=== PATIENT | male | born 1935 | race Caucasian/White ===

== ENCOUNTER 2018-07-06 10:58 | Inpatient (IN) | payer OTHER ==
[~2018-07-06] VITALS: Ht 170.2 cm; Wt 76.7 kg
--- NOTE | ~2018-07-06 | HC ---
[facility] [place] [address] CONSULTATION Name: JUAN R EMERSON Room #: [facility] ADM IN M.R.#: [id number] Admission: 07/06/18 Attend Phys: Frank Rao MD Discharge: Date of : 36 Report #: [id number] THIS REPORT FOR: //name// CC: Polly Rao DATE OF SERVICE: 07/07/2018 HISTORY OF PRESENT ILLNESS: This is an 82-year-old male patient who was evaluated by me for altered mental status. This patient lives with the daughter. He was able to do many of the things by himself. He went to a bank and looks like he got confused. He does not remember much about that. He was at baseline mentation prior to dropping there. So, it looks like it happened episodically. He was not having any significant infection at that time. His blood sugar has been low here. That is being adjusted by Dr. Rao. REVIEW OF SYSTEMS: Indicates that this patient's blood sugar is running low. He had an MRI done, which was reviewed that does show multiple small CVA. Those are chronic and none of them is acute. He does have a cardiac stent as well as history of bypass surgery. He does have a history of coronary artery disease as well as diabetes mellitus. He does not look like he has any clinical CVA. I carried out the 14-point review of system and this was his relevant 14-point review of system. He does not have any ambulation difficulty and in fact is able to help his family do multiple things. PAST MEDICAL HISTORY: Positive for diabetes and looks like he has a documented hypoglycemia here. FAMILY HISTORY: Negative for early age stroke. SOCIAL HISTORY: Multiple family members were here and I talked to them about his condition. Apparently, he does not smoke or drink any alcohol. PHYSICAL EXAMINATION: Indicates he is alert. He is responsive. He can tell me what month and what date it is. He knows what hospital he is in. He was able to name the president, but was not able to name the president before that. So his memory is affected, but not markedly so at the moment, but he becomes much more confused than this during that episode. His cranial nerve examinations appear unremarkable. His strength, sensation, reflexes and tone is symmetrical. There is no meningeal sign. There is no carotid bruit. His position sense is intact. His pulses are present. His cardiac examinations appear unremarkable. No respiratory difficulty was noticed. Blood pressure is 159/66, respiration is 20, pulse is 70, temperature is 97.4. LABORATORY DATA: Indicates that he does have slightly increased WBC count of 12.7. His blood sugar has been persistently low and it has been 46 and 51. His [facility] [address] [place] [address] CONSULTATION Name: JUAN R EMERSON Room #: 461-P ADM IN M.R.#: [id number] Admission: 07/06/18 Attend Phys: Frank Rao MD Discharge: Date of : 36 Report #: [id number] TSH and vitamin B12 is normal. His MRI was reviewed. It demonstrates multiple strokes in various locations. His carotid Doppler looks unremarkable. It does show some atherosclerotic disease, but nothing which is causing any hemodynamic disturbances. IMPRESSION: This patient does have some cognitive deficit in the baseline. They do become intermittently worst. One of the etiology for that will be hypoglycemia. This hypoglycemia he has is significant and can cause the symptoms like that and it may have even gone lower than that when his symptoms occur. The patient with cognitive deficits sometimes can have nonconvulsive seizures and sometimes, they can have transient ischemic attack. He does have lacunar cerebrovascular accidents on both sides and that possibility is there. His MRI demonstrates that. His carotid is unremarkable. I will get an MRA done to exclude any possibility of intracranial stenosis or any vasculitis. He will need a lipid profile, but again that can be done as an outpatient. He also needs a sed rate. He is already on aspirin and because of his stroke, the secondary prophylaxis needs to be considered in this patient. RECOMMENDATIONS: 1. We will suggest lipid profile and sed rate. If he goes home, it can be done as an outpatient. This is a chronic process. He insists on going home. 2. I will get an MRA done. 3. I will try to get an EEG done. 4. He should have formal neuropsychological testing done because the family has question whether he can drive, whether he can take care of his finances and those questions will be answered by formal neuropsychological testing. 5. If these tests cannot be arranged and the patient really wants to go home, he can go home because the daughter will provide 24-hour care to him. I had multiple conversations with the patient's family and more than 50 minutes of time was spent taking care of this patient and majority of that time was spent counseling the patient as well as coordinating his care. <ELECTRONICALLY SIGNED> By: Sam Masterson MD 07/07/18 1711 [id number] Sam Masterson MD /nt
--- NOTE | ~2018-07-06 | HC ---
[facility] [place] [address] CONSULTATION Name: JUAN R EMERSON Room #: [address] [place] [address] IN M.R.#: [id number] Admission: 07/06/18 Attend Phys: Frank Rao MD Discharge: 07/07/18 Date of : 36 Report #: [id number] THIS REPORT FOR: //name// CC: Polly Rao DATE OF SERVICE: 07/07/2018 AGE: 82. REFERRING PHYSICIAN: Sam Masterson MD. CLINICAL PRESENTATION: The patient is an 82-year-old male admitted to the [facility] for evaluation and treatment following an episode of confusion and disorientation. His daughter indicated that he appeared weak and confused when picking her up from a doctor's appointment, and she brought him to the hospital for assessment and treatment. The patient lacks a complete recall of events prior to his hospitalization as he describes a feeling of disorientation while at a bank and returning to his car with the next memory being in the hospital. Medical records indicate that he had been feeling dizziness in the fire officer the day of the acute confusional state. His daughter indicates that he has had similar episodes, possibly related to blood pressure medication for the past 3 years. Additionally, his daughter reports intermittent periods in which he becomes aggressive and combative to the extent of striking her. Periods of disorientation are described in which he has not recognized former acquaintances and friends. His assessment and plan upon admission included acute encephalopathy at baseline, possibly Alzheimer's versus vascular dementia. Orders included an MRI of his head, ultrasound of the carotids, echocardiogram, Neurology and geriatric consult. Neuropsychological consultation was requested to provide assistance in the assessment of cognitive and emotional status and to provide recommendations and services. Prior to this most recent admission, the patient reports living independently with his daughter and two grandchildren. He has five children. He stated that his second approximately 4 weeks prior to his recent hospital admission. However, his daughter indicated that she has been for over four years. He has completed the 10th grade. 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 There is no prior history of [facility] [address] [place] [address] CONSULTATION Name: JUAN R EMERSON Room #: 461-P DIS IN M.R.#: [id number] Admission: 07/06/18 Attend Phys: Frank Rao MD Discharge: 07/07/18 Date of : 36 Report #: [id number] anxiety/depression or alcohol/drug abuse that is reported. TECHNIQUES UTILIZED: Clinical interview, review of medical records, staff consultation and behavioral observation, mini mental status exam 2 standard version, clock drawing, category fluency assessment and family interview-daughter. EXAMINATION FINDINGS: The patient was alert and cooperative with the assessment. He does not report auditory or visual hallucinations. There is no evidence of aphasia. He is partially accurate in the events immediately preceding his hospitalization. He does not report difficulty with sleep or appetite. Variability in memory and intermittent periods of agitation are reported. His mood appears somewhat depressed. He does not report subjective anxiety, although he would like to return home as soon as possible. While he refers to the loss of his as more recent, he maintains a relationshiop with a female peer. He has a temporal disorientation to time in the manner in which he describes current social interaction. His performance on the MMSE 2 brief version was in the mild to moderate range of impairment with a raw score of 12/16, which is a T score of 35 and percentile rank of 7. He was 3/3 for initial registration, 5/5 for orientation to time, 3/[address] and 1/3 for immediate recall of 3 items after a brief time delay and distraction. Performance on the MMSE 2 standard version was in the borderline range with a raw score 21 of 30, T score 36 and percentile rank of 8. He was 1/5 for serial sevens, 2/2 for naming, 1/1 for repetition, 3/3 for comprehension, 1/1 for being able to read and follow single command and write a sentence. The patient was unable to accurately copy a simple geometric design and unable to accurately set the hands of a clock at a designated time, suggesting deficits in visual construction and executive functioning. Category fluency was within normal range for his age with a T score of 45. The patient is presenting with deficits in memory, sustained concentration and attention, visual spatial construction and executive functioning. He is alert and oriented. This type of presentation suggests a major neurocognitive disorder (dementia). DIAGNOSTIC IMPRESSION: Major neurocognitive disorder (dementia), unspecified, without behavior disorder - mild severity. RECOMMENDATIONS: The patient may have had an initial delirium that is now resolved. Lingering symptoms of cognitive disorder are noted. A more thorough neuropsychological assessment upon discharge is indicated to assist in clarification of neurocognitive deficits. [facility] [address] [place] [address] CONSULTATION Name: ZAHIDA EMERSONED Room #: 461-P DIS IN M.R.#: [id number] Admission: 07/06/18 Attend Phys: Frank Rao MD Discharge: 07/07/18 Date of : 36 Report #: [id number] Driving should be discontinued at this time in order to maintain safety and pending a more thorough evaluation. The patient will require assistance in the management of medication, nutrition and finances to ensure safety. His presentation does have Alzheimer and vascular type features. Thank you very much for allowing me to provide the consultation on this patient. <ELECTRONICALLY SIGNED> By: Raleigh Rodriguez, PhD 07/10/18 0623 1339 1717 Raleigh Rodriguez, PhD /nt
--- NOTE | ~2018-07-06 | 2DMMODE ---
[facility] [address] [place] [address] 2 D/M-MODE ECHOCARDIOGRAM Name: JUAN R EMERSON Room #: 461-P [facility] IN M.R.#: [id number] Admission: 07/06/18 Attend Phys: Frank Rao, Discharge: Date of : 36 Date of Service: 07/07/18 1127 Report #: [id number] THIS REPORT FOR: //name// APPROVED REPORT Study performed: 07/07/2018 10:04:23 EXAM: Comprehensive 2D, Doppler, and color-flow Echocardiogram Patient Location: Bedside Room #: 461 Status: routine BSA: 1.88 HR: 73 bpm BP: 133/47 mmHg Other Information Study Quality: Adequate Indications Diabetes Dizziness and Vertigo CAD Hypertension/HDD 2D Dimensions RVDd: 38.40 mm IVSd: 11.97 (7-11mm) LVOT Diam: 20.62 (18-24mm) LVDd: 48.39 mm PWd: 13.15 (7-11mm) Ascending Ao: 35.72 (22-36mm) LVDs: 29.99 (25-40mm) Aortic Root: 38.15 mm Volumes Left Atrial Volume (Systole) Single Plane 4CH: 94.45 mL Single Plane 2CH: 82.28 mL LA ESV Index: 52.00 mL/m2 Aortic Valve AoV Peak Edmond.: 2.31 m/s AO Peak Gr.: 21.31 mmHg LVOT Max P.95 mmHg AO Mean Gr.: 12.23 mmHg LVOT Mean P.61 mmHg AO V2 Mean: 1.67 m/s LVOT Max V: 1.11 m/s AO V2 VTI: 53.60 cm LVOT Mean V: 0.75 m/s ZHEN (VTI): 1.81 cm2 LVOT V1 VTI: 29.00 cm ZHEN Vmax: 1.61 cm2 [facility] [place] [address] 2 D/M-MODE ECHOCARDIOGRAM Name: [facility] Room #: 461-P [facility] IN M.R.#: [id number] Admission: 07/06/18 Attend Phys: Frank Rao, Discharge: Date of : 36 Date of Service: 07/07/18 1127 Report #: [id number] Vmax: 4.00 m/s SV (LVOT): 96.78 mL AI Upton: 3.77 m/s2 AI PHT: 307.35 ms Mitral Valve E/A Ratio: 1.4 MV Decel. Time: 208.37 ms MV E Max Edmond.: 1.72 m/s MV A Edmond.: 1.26 m/s MV PHT: 60.43 ms IVRT: 107.27 ms Pulmonary Valve PV Peak Edmond.: 0.94 m/s PV Peak Gr.: 3.53 mmHg Pulmonary Vein P Vein S: 0.79 m/s P Vein A: 0.10 m/s P Vein D: 0.65 m/s P Vein A Dur.: 93.4 msec P Vein S/D Ratio: 1.22 Tricuspid Valve TR Peak Edmond.: 2.78 m/s TR Peak Gr.: 30.82 mmHg Left Ventricle The left ventricle is normal size. Mild concentric left ventricular hypertrophy. The left ventricular systolic function is normal. The left ventricular ejection fraction is within the normal range. LVEF is 55-60%. Moderate diastolic dysfunction is present (pseudonormal filling). Right Ventricle The right ventricle is normal size. The right ventricular systolic function is normal. Atria Left atrium is severely dilated. Right atrium is mildly dilated. Aortic Valve Aortic valve is calcified. Mild to moderate aortic regurgitation. There is mild valvular aortic stenosis. Calculated aortic valve area is 1.8 cm2 with maximum pressure gradient of 21 mmHg and mean pressure gradient of 12 mmHg. Mitral Valve [facility] [address] [place] [address] 2 D/M-MODE ECHOCARDIOGRAM Name: [facility] Room #: 461-P [facility] IN M.R.#: [id number] Admission: 07/06/18 Attend Phys: Frank Rao, Discharge: Date of : 36 Date of Service: 07/07/18 1127 Report #: [id number] Moderate mitral annular calcification. Mild mitral regurgitation. No evidence of mitral valve stenosis. Tricuspid Valve The tricuspid valve is normal in structure. Mild tricuspid regurgitation. PAP = 31 mmHg + estimated RA pressure. Pulmonic Valve Pulmonic valve is not well visualized. Trace pulmonic regurgitation. Great Vessels The aortic root is normal in size. IVC is not visualized. Pericardium There is no pericardial effusion. <Conclusion> The left ventricle is normal size. Mild concentric left ventricular hypertrophy. The left ventricular systolic function is normal. Moderate diastolic dysfunction is present (pseudonormal filling). The right ventricle is normal size. Left atrium is severely dilated. Right atrium is mildly dilated. Mild to moderate aortic regurgitation. There is mild valvular aortic stenosis. Moderate mitral annular calcification. Mild mitral regurgitation. Mild tricuspid regurgitation. PAP = 31 mmHg + estimated RA pressure. <ELECTRONICALLY SIGNED> By: Ronald Brand MD 07/07/18 1127 112 112 Ronald Brand MD /INF
--- NOTE | ~2018-07-06 | EEG ---
[facility] [place] [address] ELECTROENCEPHALOGRAM Name: JUAN R EMERSON Room #: 461-P ADM IN M.R.#: [id number] Admission: 07/06/18 Attend Phys: Frank Rao MD Discharge: Date of : 36 Report #: [id number] THIS REPORT FOR: //name// CC: Polly Rao DATE OF SERVICE: 07/07/2018 This patient is being evaluated for an episode of confusion. The main purpose of the EEG is to exclude the possibility of non-convulsive seizures. The patient's background activity is about 9 Hz and 30 microvolt. The patient goes to sleep that is associated with bilateral slowing and vertex sharp waves. Photic stimulation is unremarkable. Throughout the record, no active epileptiform activity was noticed. IMPRESSION: This patient's electroencephalogram is unremarkable. <ELECTRONICALLY SIGNED> By: Sam Masterson MD 07/07/18 1712 1609 1613 Sam Masterson MD /nt
--- NOTE | ~2018-07-06 | EKG ---
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
[2018-07-06 10:59] VITALS: BP 137/57
[2018-07-06 11:36] LABS: ABSOLUTE NEUTROPHILS 6.7 thou/uL (1.4-8.2); EOSINOPHILS 2.4 % (0.0-3.0); HEMATOCRIT 36.9 % (42.0-52.0); HEMOGLOBIN 12.4 gm/dL (14.0-18.0); LYMPHOCYTES 21.6 % (24.0-44.0); MCH 28.2 pg (26.0-34.0); MCHC 33.5 g/dL (28.0-37.0); MONOCYTES 9.2 % (1.0-8.0); PLATELET COUNT 221 thou/uL (150-400); POLYS 65.8 % (36.0-66.0); RDW 15.8 % (10.5-14.5); WBC 10.1 thou/uL (4.0-11.0)
[2018-07-06 11:52] LABS: ANION GAP 9 mmol/L (7-16); BUN 21 mg/dL (7-18); CALCIUM 9.8 mg/dL (8.5-10.1); CHLORIDE 103 mmol/L (98-107); CO2 26 mmol/L (21-32); CREATININE 1.2 mg/dL (0.7-1.3); GLUCOSE 51 mg/dL (74-106); POTASSIUM 3.3 mmol/L (3.5-5.1); SODIUM 138 mmol/L (136-145)
[2018-07-06 11:58] LABS: URINE BILIRUBIN NEGATIVE (Negative); URINE BLOOD NEGATIVE (Negative); URINE CLARITY CLEAR; URINE COLOR YELLOW; URINE GLUCOSE-RANDOM* 1+ (Negative); URINE KETONES NEGATIVE (Negative); URINE LEUKOCYTES-REFLEX NEGATIVE (Negative); URINE NITRITE-REFLEX NEGATIVE (Negative); URINE PROTEIN (DIPSTICK) NEGATIVE (Negative); URINE SPECIFIC GRAVITY 1.025 (1.005-1.035); URINE UROBILINOGEN 0.2 E.U./dl (0.2-1.0)
[2018-07-06 11:59] LABS: ALBUMIN 3.8 g/dL (3.4-5.0); SGOT 18 U/L (15-37); SGPT 22 U/L (30-65); TOTAL BILIRUBIN 0.5 mg/dL (<0.1-1.0); TOTAL PROTEIN 8.2 g/dL (6.4-8.2); TROPONIN-I <0.06 ng/mL (<0.06)
[2018-07-06 14:29] LABS: TSH 1.154 uIU/mL (0.358-3.740)
[2018-07-06] MEDS ORDERED: LASIX 20 MG TAB20 MG PO (14:45)
[2018-07-06] MEDS ORDERED: FLOMAX0.4 MG PO (14:45)
[2018-07-06] MEDS ORDERED: IMDUR 30 MG TAB30 M1 PO (14:46)
[2018-07-06] MEDS ORDERED: LISINOPRIL2.5 MG PO (14:46)
[2018-07-06] MEDS ORDERED: LOVASTATIN 20 M20 MG PO (14:47)
[2018-07-06] MEDS ORDERED: MAGOX 400400 MG PO (14:47)
[2018-07-06] MEDS ORDERED: OMEPRAZOLE 20 M20 M1 PO (14:48)
[2018-07-06] MEDS ORDERED: METFORMIN HCL500 MG PO (14:48)
[2018-07-06] MEDS ORDERED: TOPROL XL25 MG PO (14:48)
[2018-07-06] MEDS ORDERED: VESICARE 5 MG TA5 MG PO (14:50)
[2018-07-06] MEDS ORDERED: REQUIP 0.25 M0.25 M1 PO (14:50)
[2018-07-06] MEDS ORDERED: ASPIR 8181 MG PO (14:51)
[2018-07-06] MEDS ORDERED: LEVEMIR SUBQ (14:52)
[2018-07-06 18:26] VITALS: BP 136/59
[2018-07-06 19:27] VITALS: BP 128/54
[2018-07-07 05:45] VITALS: BP 130/51
[2018-07-07 05:53] VITALS: BP 133/47
[2018-07-07 07:03] LABS: HEMATOCRIT 37.3 % (42.0-52.0); HEMOGLOBIN 12.5 gm/dL (14.0-18.0); MCH 28.1 pg (26.0-34.0); MCHC 33.6 g/dL (28.0-37.0); MCV 83.5 fL (80.0-100.0); RBC 4.47 mil/uL (4.50-6.00); RDW 15.3 % (10.5-14.5); WBC 12.7 thou/uL (4.0-11.0)
[2018-07-07 07:14] LABS: CALCIUM 9.1 mg/dL (8.5-10.1); CREATININE 1.1 mg/dL (0.7-1.3); MAGNESIUM 1.6 mg/dL (1.8-2.4); POTASSIUM 3.6 mmol/L (3.5-5.1)
[2018-07-07 08:00] VITALS: BP 159/66
[2018-07-07] MEDS ORDERED: LANTUS100 UNIT/M SUBQ (16:18)
[2018-07-07] MEDS ORDERED: DEPAKOTE 250MG250 M1 PO (16:21)
[2018-07-07 16:31] VITALS: BP 159/66
== END 2018-07-07 18:05 | disposition home or self-care (01) | DRG 57 ==
LOC: ER 10:58 → EROBS 13:31 → 4W 19:25
PROVIDERS: Internal Medicine; Student in an Organized Health Care Education/Training Program
DX: G30.9 Alzheimer's disease, unspecified (principal); G93.40 Encephalopathy, unspecified; N18.9 Chronic kidney disease, unspecified; E11.22 Type 2 diabetes mellitus with diabetic chronic kidney disease; N40.0 Benign prostatic hyperplasia without lower urinary tract symptoms; K21.9 Gastro-esophageal reflux disease without esophagitis; I12.9 Hypertensive chronic kidney disease with stage 1 through stage 4 chronic kidney disease, or unspecified chronic kidney disease; I25.10 Atherosclerotic heart disease of native coronary artery without angina pectoris; E11.649 Type 2 diabetes mellitus with hypoglycemia without coma; R45.1 Restlessness and agitation; F02.80 Dementia in other diseases classified elsewhere, unspecified severity, without behavioral disturbance, psychotic disturbance, mood disturbance, and anxiety; Z79.899 Other long term (current) drug therapy; Z95.1 Presence of aortocoronary bypass graft; Z95.5 Presence of coronary angioplasty implant and graft
CPT/HCPCS: 10045

== ENCOUNTER 2018-07-19 20:04 | Inpatient (IN) | payer OTHER ==
[~2018-07-19] VITALS: Ht 170.2 cm; Wt 81.1 kg
--- NOTE | ~2018-07-19 | EKG ---
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1935 Requested By: Joe Young Order Number: [id number] MD: Geraldo Villareal Measurements Intervals [place] Rate: 73 P: 9 ID: 233 QRS: 86 QRSD: 113 T: 61 QT: 431 QTc: 475 Interpretive Statements Sinus rhythm Frequent premature ventricular complexes Compared to ECG 07/06/2018 11:40:43 Ventricular premature complex(es) now present Electronically Signed On 07-20-2018 8:13:54 MERCHANDISE PRESENTATION ASSOCIATE by Geralod Villareal [email or web address] <ELECTRONICALLY SIGNED> By: Geraldo Villareal MD, [facility] 07/20/1813 13 13 Geraldo Villareal MD, FACC /EPI
[~2018-07-19 20:04] MED LIST: ASPIR 8181 MG PO; DEPAKOTE 250MG250 M1 PO; FLOMAX0.4 MG PO; IMDUR 30 MG TAB30 M1 PO; LANTUS100 UNIT/M SUBQ; LASIX 20 MG TAB20 MG PO; LEVEMIR SUBQ; LISINOPRIL2.5 MG PO; LOVASTATIN 20 M20 MG PO; MAGOX 400400 MG PO; METFORMIN HCL500 MG PO; OMEPRAZOLE 20 M20 M1 PO; REQUIP 0.25 M0.25 M1 PO; TOPROL XL25 MG PO; VESICARE 5 MG TA5 MG PO
[2018-07-19 20:06] VITALS: BP 183/86
[2018-07-19 20:21] LABS: ABSOLUTE NEUTROPHILS 6.8 thou/uL (1.4-8.2); BASOPHILS 0.6 % (0.0-2.0); EOSINOPHILS 2.1 % (0.0-3.0); HEMATOCRIT 36.4 % (42.0-52.0); HEMOGLOBIN 12.2 gm/dL (14.0-18.0); LYMPHOCYTES 14.3 % (24.0-44.0); MCH 28.4 pg (26.0-34.0); MCHC 33.5 g/dL (28.0-37.0); MCV 84.8 fL (80.0-100.0); MONOCYTES 9.8 % (1.0-8.0); PLATELET COUNT 165 thou/uL (150-400); POLYS 73.2 % (36.0-66.0); RBC 4.29 mil/uL (4.50-6.00); RDW 15.3 % (10.5-14.5); WBC 9.3 thou/uL (4.0-11.0)
[2018-07-19 20:22] LABS: URINE BILIRUBIN NEGATIVE (Negative); URINE BLOOD NEGATIVE (Negative); URINE CLARITY CLEAR; URINE COLOR YELLOW; URINE GLUCOSE-RANDOM* TRACE (Negative); URINE KETONES NEGATIVE (Negative); URINE LEUKOCYTES-REFLEX NEGATIVE (Negative); URINE NITRITE-REFLEX NEGATIVE (Negative); URINE PROTEIN (DIPSTICK) NEGATIVE (Negative); URINE UROBILINOGEN 0.2 E.U./dl (0.2-1.0)
[2018-07-19 20:30] LABS: ANION GAP 5 mmol/L (7-16); BUN 22 mg/dL (7-18); CALCIUM 9.1 mg/dL (8.5-10.1); CHLORIDE 101 mmol/L (98-107); CO2 29 mmol/L (21-32); CREATININE 1.1 mg/dL (0.7-1.3); GLUCOSE 132 mg/dL (74-106); POTASSIUM 3.9 mmol/L (3.5-5.1); SODIUM 135 mmol/L (136-145)
[2018-07-19 20:38] LABS: TROPONIN-I <0.06 ng/mL (<0.06)
[2018-07-19 22:09] VITALS: BP 181/71
[2018-07-19 22:17] VITALS: BP 181/75
[2018-07-19 23:00] VITALS: BP 172/76
[2018-07-20 03:58] VITALS: BP 163/76
[2018-07-20 04:52] LABS: CALCIUM 8.7 mg/dL (8.5-10.1); POTASSIUM 4.2 mmol/L (3.5-5.1)
[2018-07-20 07:56] VITALS: BP 160/70
[2018-07-20 10:26] VITALS: BP 151/62
[2018-07-20] MEDS ORDERED: ACETAMINOPHEN325 M1 PO (14:55)
[2018-07-20] MEDS ORDERED: MIRALAX17 GM PO (14:55)
[2018-07-20 15:25] VITALS: BP 140/66
== END 2018-07-20 17:30 | disposition home or self-care (01) | DRG 637 ==
LOC: ER 20:04 → 4W 21:54 → EROBS 21:54 → 4W 22:34 → ENTRNSPT 07-20 17:50
PROVIDERS: Emergency Medicine; Nurse Practitioner Family
DX: E11.649 Type 2 diabetes mellitus with hypoglycemia without coma (principal); E43 Unspecified severe protein-calorie malnutrition; T68.XXXA Hypothermia, initial encounter; E11.22 Type 2 diabetes mellitus with diabetic chronic kidney disease; I25.10 Atherosclerotic heart disease of native coronary artery without angina pectoris; E78.5 Hyperlipidemia, unspecified; K21.9 Gastro-esophageal reflux disease without esophagitis; I12.9 Hypertensive chronic kidney disease with stage 1 through stage 4 chronic kidney disease, or unspecified chronic kidney disease; R63.4 Abnormal weight loss; F03.90 Unspecified dementia, unspecified severity, without behavioral disturbance, psychotic disturbance, mood disturbance, and anxiety; N18.3 Chronic kidney disease, stage 3 (moderate); N40.0 Benign prostatic hyperplasia without lower urinary tract symptoms; Z79.82 Long term (current) use of aspirin; Z79.899 Other long term (current) drug therapy; Z95.1 Presence of aortocoronary bypass graft; Z95.5 Presence of coronary angioplasty implant and graft; Z68.28 Body mass index [BMI] 28.0-28.9, adult
CPT/HCPCS: 10045

== ENCOUNTER 2018-11-30 07:04 | Inpatient (IN) | payer OTHER ==
[~2018-11-30] VITALS: Ht 172.7 cm; Wt 77.2 kg
[~2018-11-30 07:04] MED LIST changes: +ACETAMINOPHEN325 M1 PO; +MIRALAX17 GM PO
[2018-11-30 07:05] VITALS: BP 159/60
[2018-11-30 07:32] LABS: HEMOGLOBIN 13.3 gm/dL (14.0-18.0); MCHC 34.2 g/dL (28.0-37.0); PLATELET COUNT 195 thou/uL (150-400); RBC 4.59 mil/uL (4.50-6.00); RDW 15.4 % (10.5-14.5); WBC 15.5 thou/uL (4.0-11.0)
[2018-11-30 07:36] LABS: URINE BILIRUBIN NEGATIVE (Negative); URINE BLOOD NEGATIVE (Negative); URINE CLARITY CLEAR; URINE COLOR YELLOW; URINE GLUCOSE-RANDOM* 1+ (Negative); URINE KETONES 1+ (Negative); URINE LEUKOCYTES-REFLEX NEGATIVE (Negative); URINE NITRITE-REFLEX NEGATIVE (Negative); URINE PROTEIN (DIPSTICK) 1+ (Negative); URINE SPECIFIC GRAVITY 1.015 (1.005-1.035); URINE UROBILINOGEN 0.2 E.U./dl (0.2-1.0)
[2018-11-30 07:43] LABS: CALCIUM 10.2 mg/dL (8.5-10.1); CREATININE 1.3 mg/dL (0.7-1.3); POTASSIUM 3.6 mmol/L (3.5-5.1)
[2018-11-30 07:55] LABS: CASTS None Seen /LPF (None Seen); CRYSTALS None Seen /LPF (None Seen); SQUAMOUS None Seen /LPF (0-3); URINE RBC None Seen /HPF (0-2); URINE WBC-REFLEX 0-5 Rare /HPF (0-5)
[2018-11-30 07:56] LABS: BACTERIA-REFLEX 1-9 Few /HPF (None Seen)
[2018-11-30 08:57] LABS: ABSOLUTE NEUTROPHILS 13.8 thou/uL (1.4-8.2); ANISOCYTOSIS 1+
[2018-11-30 12:00] VITALS: BP 152/77
--- NOTE | 2018-11-30 12:18 | NUR ---
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 ONE MORNING RECENTLY SHE SAID HE WAS HURTING SO BAD HE COULDN'T GET OOB. DAUGHTER THINKS IT'S RELATED TO KIDNEYS. PT IS INCONTINENT CURRENTLY. NOTES SHOW HERNIA. SHE STATES EVER SINCE HERNIA SURGERY ABOUT A YEAR AGO SHE SAID HE'S NOT BEEN THE SAME. BED ALARM ON. PT ALSO STATES HE'S HAD QUITE A HX OF UTI'S, ALSO DIABETIC AND SHE STATES HE'S NOT HAD IT UNDER CONTROL FOR QUITE A WHILE. ENCOURAGED ALL TO USE CALL LIGHT FOR ANY NEEDS
--- NOTE | 2018-11-30 14:26 | NUR ---
Case opened to follow for dc planning. 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 He indicates that he lives with his dtr Lucy in a mobile home park in [place]. 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 He reports no assistive device and 3 steps to get in and out of the mobile home. He has not had any hh recently and is able to afford his medications through his insurance coverage. His reports that he and his dtr struggle financially and both get food stamps. They are having trouble paying the lot rent in the mobile home park. He is being treated for pneumonia and has also had back and leg pain which has limited his mobility the past few days. He went to his pcp dr. sakina burkett and [facility] before coming here. SNF and HH discussed. Pt appears receptive if covered by insurance. Therapy evals are pending. No family here at present. [facility] or [facility] may be options if snf is indicated.
[2018-11-30 14:56] VITALS: BP 137/61
[2018-11-30 16:13] VITALS: BP 111/53
--- NOTE | 2018-11-30 17:16 | EKG ---
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 : 1935 Requested By: Kelsey Condon Order Number: [id number] MD: Geraldo Villareal Measurements Intervals [place] Rate: 127 P: 95 IL: 131 QRS: 122 QRSD: 106 T: -7 QT: 359 QTc: 523 Interpretive Statements Supraventricular tachycardia Ventricular premature complex Early R-wave progression Prolonged QT interval Baseline wander in lead(s) V1 Compared to ECG 07/19/2018 20:14:56 Sinus rhythm no longer present Electronically Signed On 11-30-2018 17:15:48 CDT by Geraldo Villareal [email or web address] ��������������������������������������������� <ELECTRONICALLY SIGNED> ���������������������������������������� By: Geraldo Villareal MD, FACC ��������������������������������������������� 11/30/18 1715 0744 0744 Geraldo Villareal MD, [facility] /EPI
--- NOTE | 2018-11-30 17:23 | NUR ---
PT IS SWEET CAN BE AND IS IMPULSIVE YET ONLY SLOWLY, APOLOGIZES. CONTACTED DR. PATIÑO TO SEE IF HE'D LIKE TO ORDER ANYTHING IN CASE TONIGHT PT WORSENS. CRYSTAL STATES SHE'D RETURN TO SLEEP, PT DIDN'T THINK SHE'D FOLLOW UP. PT WAS STATING HE NEEDED TO GET TO THE GROCERY STORE. GENTLE EDUCATION GIVEN AND RETURN DEMO DONE SUCCESSFULLY WITH CALL LIGHT FOR ANY NEEDS
[2018-11-30 19:53] VITALS: BP 126/46
[2018-12-01 00:23] VITALS: BP 131/60
[2018-12-01 04:25] LABS: HEMATOCRIT 33.5 % (42.0-52.0); HEMOGLOBIN 11.4 gm/dL (14.0-18.0); MCH 29.1 pg (26.0-34.0); MCHC 33.9 g/dL (28.0-37.0); MCV 85.9 fL (80.0-100.0); RBC 3.9 mil/uL (4.50-6.00); RDW 15.8 % (10.5-14.5); WBC 12.2 thou/uL (4.0-11.0)
[2018-12-01 04:41] LABS: ANION GAP 6 mmol/L (7-16); BUN 31 mg/dL (7-18); CALCIUM 9.4 mg/dL (8.5-10.1); CHLORIDE 106 mmol/L (98-107); CO2 27 mmol/L (21-32); CREATININE 1.1 mg/dL (0.7-1.3); GLUCOSE 76 mg/dL (74-106); POTASSIUM 3.9 mmol/L (3.5-5.1); SODIUM 139 mmol/L (136-145); TROPONIN-I <0.06 ng/mL (<0.06)
[2018-12-01 05:44] VITALS: BP 129/61
--- NOTE | 2018-12-01 07:56 | NUR ---
ASSUMED PT CARE AT 1900 WITH NO SIGN OF DISTRESS NOTED IN PT. PT IS DROWSY.NO SIGN OF DISTRESS NOTED IN PT. PT IS STABLE. SCHEDULED MEDS ADMININISTERED TO PT. DENIES ANY FURTHER NEEDS AT THIS TIME. PAIN MEDS ADMINISTERED TO PT. NO SIGN OF DISTRESS NOTED IN PT. PT IS STABLE.
[2018-12-01 09:30] VITALS: BP 145/58
[2018-12-01 12:44] VITALS: BP 103/51
--- NOTE | 2018-12-01 13:06 | 2DMMODE ---
[facility] [address] [place] [address] 2 D/M-MODE ECHOCARDIOGRAM Name: JUAN R EMERSNO Room #: 203-P ADM IN .R.#: [id number] ������������� Admission: 11/30/18 ������������� Attend Phys: David Beck MD Discharge: ��� ������������� ��� Date of : 37 Date of Service: 12/01/18 1306 �� Report #: [id number] �������� ��������������������������������������������[id number] THIS REPORT FOR: //name// APPROVED REPORT Study performed: 12/01/2018 09:33:13 EXAM: Comprehensive 2D, Doppler, and color-flow Echocardiogram Patient Location: Bedside Room #: 203 Status: on-call BSA: 1.95 HR: 70 bpm BP: 129/61 mmHg Rhythm: NSR Other Information Study Quality: Adequate Risk Factors: Cardiac Risk Factors: DM, HTN, Hyperlipidemia Indications CAD 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 [address] [place] [address] 2 D/M-MODE ECHOCARDIOGRAM Name: SUMANTH EMERSONFRED Room #: 203-[facility] IN ..#: [id number] ������������� Admission: 11/30/18 ������������� Attend Phys: David Beck MD Discharge: ��� ������������� ��� Date of : 37 Date of Service: 12/01/18 1306 �� Report #: [id number] �������� ��������������������������������������������[id number] Mean Gr.: 11.92 mmHg LVOT Mean P.02 mmHg AO V2 Mean: 1.61 m/s LVOT Max V: 1.15 m/s AO V2 VTI: 46.90 cm LVOT Mean V: 0.81 m/s ZHEN (VTI): 1.71 cm2 LVOT V1 VTI: 24.47 cm ZHEN Vmax: 1.53 cm2 AI Vmax: 3.79 m/s SV (LVOT): 80.17 mL AI Cheatham: 2.44 m/s2 AI PHT: 450.87 ms Mitral Valve MV Peak Gr.: 10.40 mmHg MV Mean Gr.: 5.96 mmHg E/A Ratio: 1.0 MV Decel. Time: 353.64 ms MV E Max Edmond.: 1.33 m/s MV A Edmond.: 1.38 m/s MV Max Edmond.: 1.61 m/s MV Mean Edmond.: 1.17 m/s MV VTI: 572.75 mm MVA VTI: 139.98 mm2 MV PHT: 102.56 ms MVA (PHT): 2.18 cm2 IVRT: 89.97 ms TDI E/Lateral E': 14.78 E/Medial E': 33.25 Medial E' Edmond.: 0.04 m/s Lateral E' Edmond.: 0.09 m/s Pulmonary Valve PV Peak Edmond.: 1.08 m/s PV Peak Gr.: 4.64 mmHg Pulmonary Vein P Vein S: 0.68 m/s P Vein A: 0.19 m/s P Vein D: 0.51 m/s P Vein A Dur.: 110.7 msec P Vein S/D Ratio: 1.33 Tricuspid Valve TR Peak Edmond.: 2.84 m/s RAP Estimate: 7.00 mmHg TR Peak Gr.: 32.16 mmHg PA Pressure: 39.00 mmHg Left Ventricle The left ventricle is normal size. There is normal LV segmental wall motion. Mild concentric left ventricular hypertrophy. Left ventricular systolic function is normal. The left ventricular ejection fraction is within the normal range. LVEF is 50-55%. This [address] [address] 2 D/M-MODE ECHOCARDIOGRAM Name: JUAN R EMERSON Room #: 203-P ADM IN M.R.#: [id number] ������������� Admission: 11/30/18 ������������� Attend Phys: David Beck MD Discharge: ��� ������������� ��� Date of : 37 Date of Service: 12/01/18 1306 �� Report #: [id number] �������� ��������������������������������������������[id number] study is not technically sufficient to allow evaluation of the LV diastolic function. Right Ventricle The right ventricle is normal size. The right ventricular systolic function is normal. Atria Left atrium is moderately dilated. Right atrium is dilated. Aortic Valve Aortic valve is trileaflet, moderately calcified. Mild to moderate aortic regurgitation. The peak arotic valve pressure gradient 24 mmHg; mean pressure gradient is 12 mmHg. The calculated aortic valve area is 1.6 cm2. Mitral Valve Moderate mitral annular calcification, mildly calcified leaflets. Mild mitral regurgitation. Mild mitral stenosis (Peak gradient 10 mmHg; mean pressure gradient of 6 mmHg). Tricuspid Valve The tricuspid valve is normal in structure. Mild tricuspid regurgitation. The pulmonary artery pressure is 39 mmHg. Pulmonic Valve The pulmonary valve is normal in structure. Trace pulmonic regurgitation. Great Vessels The aortic root is normal in size. IVC is normal in size and collapses >50% with inspiration. Pericardium There is no pericardial effusion. <Conclusion> Left ventricular systolic function is normal. There is normal LV segmental wall motion. LVEF 50-55%. Aortic valve is trileaflet, moderately calcified, mildly stenotic.Mild to moderate aortic regurgitation. The peak arotic valve pressure gradient 24 mmHg; mean pressure gradient is 12 mmHg. The calculated aortic valve area is 1.6 cm2. Moderate mitral annular calcification, mildly calcified leaflets. [facility] [address] [place] [address] 2 D/M-MODE ECHOCARDIOGRAM Name: JUAN R EMERSON Room #: 203-P [facility] IN M.R.#: [id number] ������������� Admission: 11/30/18 ������������� Attend Phys: David Beck MD Discharge: ��� ������������� ��� Date of : 37 Date of Service: 12/01/18 1306 �� Report #: [id number] �������� ��������������������������������������������[id number] Mild mitral regurgitation. Mild mitral stenosis (Peak gradient 10 mmHg; mean pressure gradient of 6 mmHg). Mild tricuspid regurgitation. The estimated pulmonary artery pressure of 39 mmHg. There is no pericardial effusion. ��������������������������������������������� <ELECTRONICALLY SIGNED> ���������������������������������������� By: Geraldo Villareal MD, [facility] ��������������������������������������������� 12/01/18 1306 05 130 Geraldo Villareal MD, FACC /INF
[2018-12-01 17:00] VITALS: BP 143/62
--- NOTE | 2018-12-01 17:56 | NUR ---
ASSUMED CARE OF PATIENT AT 0700. ASSESSMENTS CHARTED. PATIENT VERY UNSTEADY ON FEET AND REMINDED REPEATEDLY TO CALL OUT FOR ASSISTANCE. PATIENT'S BED ALARM AND CHAIR ALARM ON. PATIENT IS RECEIVING SCHEDULED PAIN MEDS WHICH HE STATES IS VERY SUCCESSFUL IN TREATING HIS PAIN. HIS DAUGHTER WAS AT THE BEDSIDE FOR THE MORNING. PATIENT IS ANXIOUS TO GO HOME AND STATES THAT HE IS LEAVING TOMORROW. CONTINUE WITH POC.
[2018-12-01 19:24] VITALS: BP 125/56
[2018-12-02 04:05] VITALS: BP 156/76
--- NOTE | 2018-12-02 05:05 | NUR ---
ASSUMED PT CARE AT 1900 WITH NO SIGN OF DISTRESS NOTED. PT IS LAYING IN BED SLEEPING, NO FAMILY AT BEDSIDE. PT IS EASILY [place]OU[place], SCHEDULED MEDS ADMINISTERED TO PT, PT TOLERATED PO INTAKE. DENIES ANY FURTHER NEEDS AT THIS TIME. PT IS COMFORTABLE THROUGH OUT THE NIGHT. NO FURTHER NEEDS AT THIS TIME.
[2018-12-02 08:30] VITALS: BP 147/62
[2018-12-02 10:46] VITALS: BP 131/60
[2018-12-02 15:22] VITALS: BP 143/58
--- NOTE | 2018-12-02 16:35 | NUR ---
ASSUMED CARE OF PT AT 0700. PT WAS TRYING TO LEAVE AND CALLING A CAB. FAMILY ARRIVED AND PT CALMED DOWN. FAMILY REQUESTED NYSTATIN, AND NEOSPORIN WHICH WERE ORDERED. NIGHT TIME LANTUS HELD AND PT'S BLOOD SUGAR WITHIN NORMAL LIMITS TODAY. NIGHT TIME LANTUS DISCONTINUED AND LDSS LISPRO WILL BE CONT. PT COMPLAINED OF DIFFICULTY SWALLOWING AND VIDEO SWALLOW ORDERED. (ALL ORDERS APPROVED BY DR. PATIÑO VIA TELEPHONE). PT DENIED PAIN TODAY AND DID NOT WANT SCHEDULED HYDROCODONE. PT HAD SHOWER AND SHAVED HIMSELF. PT UNSTEADY WHEN WALKING AND PT STATES THIS IS NOT HIS BASELINE. 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 WILL CONT WITH POC
[2018-12-02 19:55] VITALS: BP 156/64
--- NOTE | 2018-12-03 03:48 | NUR ---
ASSESSMENT DOCUMENTED.PT BEEN RESTING IN NO ACUTE DISTRESS.A/OX4.CO-OPERATIVE WITH CARE.VSS.PT PAIN TO BACK CONTROLLED WITH HYDROCODONE.PT STATES THAT HE IS READY TO GO HOME SINCE HIS PAIN IS BETTER NOW.ANTICIPATING DISCHARGE THIS MORNING.UP WITH A WALKER TO BATHROOM,GAIT UNSTEADY.ENCOURAGED TO USE CALL LIGHT.FALL PRECAUTTIONS IN PLACE.WILL CONT TO MONITOR PER POC.
[2018-12-03 04:45] VITALS: BP 167/63
[2018-12-03 07:15] VITALS: BP 143/49
[2018-12-03] MEDS ORDERED: AZITHROMYCIN 2250 MG PO (10:38)
[2018-12-03] MEDS ORDERED: NORCO 5-325 TA1 EACH PO (11:25)
[2018-12-03 12:03] VITALS: BP 143/49
[2018-12-03 12:33] VITALS: BP 143/49
--- NOTE | 2018-12-03 13:35 | NUR ---
patient to dc home with HH. Spoke with patient no preference for HH agency. Dc internet media planner inquiring into [facility]. Patient with need for walker for home. [employer] in network they will deliver walker to home in am. Patient anxious to leave dtr at bedside and reports she has a 1:00 apt.
--- NOTE | 2018-12-03 18:44 | NUR ---
ASSUMED CARE OF PT AT 0700. PT A&OX4, UP WITH WALKER. PT HAD VIDEO SWALLOW IN AM. DISCHARGE ORDERS RECIEVED AND DAUGHTER ARRIVED. IV AND TELE REMOVED. PT STATED HE HAD ALL BELONGINS. DAUGHTER AND PT COMMUNICATED UNDERSTANDING OF DISCHARGE ORDERS, MEDS AND FOLLOWUP APPTS. DIABETIES EDUCATION PROVIDED BOTH ORAL AND WRITTEN.
== END 2018-12-03 13:27 | disposition home health service (06) | DRG 551 ==
LOC: ER 07:04 → 2N 10:44 → EROBS 10:44 → 2N 12:03 → ENTRNSPT 12-03 12:59 → EDTRNSPTSTS 12-03 13:01 → 2N 12-03 13:27
PROVIDERS: Student in an Organized Health Care Education/Training Program; ADMIT Hospitalist
DX: M48.061 Spinal stenosis, lumbar region without neurogenic claudication (principal); J18.9 Pneumonia, unspecified organism; I12.9 Hypertensive chronic kidney disease with stage 1 through stage 4 chronic kidney disease, or unspecified chronic kidney disease; E11.22 Type 2 diabetes mellitus with diabetic chronic kidney disease; E78.5 Hyperlipidemia, unspecified; N18.9 Chronic kidney disease, unspecified; I25.10 Atherosclerotic heart disease of native coronary artery without angina pectoris; F03.90 Unspecified dementia, unspecified severity, without behavioral disturbance, psychotic disturbance, mood disturbance, and anxiety; N40.0 Benign prostatic hyperplasia without lower urinary tract symptoms; K21.9 Gastro-esophageal reflux disease without esophagitis; Z95.1 Presence of aortocoronary bypass graft; Z95.5 Presence of coronary angioplasty implant and graft; Z79.4 Long term (current) use of insulin; Z79.82 Long term (current) use of aspirin; Z79.84 Long term (current) use of oral hypoglycemic drugs; Z79.899 Other long term (current) drug therapy; Z28.21 Immunization not carried out because of patient refusal
CPT/HCPCS: 10081